=== PATIENT | female | born 1960 | race Caucasian/White ===

== ENCOUNTER 2020-01-17 12:03 | Inpatient (IN) ==
[2020-01-17] MEDS ORDERED: TYLENOL PO PRN (14:52)
[2020-01-17] MEDS ORDERED: ZOFRAN IV PRN (14:52)
[2020-01-17] MEDS ORDERED: VANCOMYCIN IV PER PHARMACY MISC SCH (16:45)
[2020-01-17] MEDS ORDERED: VANCOMYCIN 1 GM/NS 1 GM/250 ML IVPB IV ONE (17:00)
[2020-01-17 17:49] LABS: BASO# 0.03 X1000 (0.0-0.2); BASO% 0.4 % (0.0-0.8); EOS# 0.08 X1000 (0.0-0.7); EOS% 0.9 % (0.0-10.0); HEMATOCRIT 35.4 % (37.0-47.0); HEMOGLOBIN 11.3 g/dL (12.0-16.0); IMM GRAN# 0.04 X1000 (0.0-0.04); IMM GRAN% 0.5 % (0.0-0.5); LYMPH# 1.19 X1000 (1.2-3.4); LYMPH% 14.1 % (20.5-51.1); MCH 27.9 PG (27-31); MCHC 31.9 g/dL (33-37); MCV 87.4 FL (81-99); MONO% 11.8 % (1.7-9.3); MPV 8.9 FL (7.4-10.4); NEUT# 6.11 X1000 (1.4-6.5); NEUT% 72.3 % (42.2-75.2); PLT 521 X1000 (130-400); RBC 4.05 XMIL (4.2-5.4); RDW 13.7 % (11.5-14.5); WBC 8.45 X1000 (4.8-10.8)
[2020-01-17 18:19] LABS: ALBUMIN 3.5 g/dL (3.5-5.0); CALCIUM 9.5 mg/dL (8.8-10.2); CREATININE 1.2 mg/dL (0.5-0.9); POTASSIUM 4.3 mmol/L (3.5-5.1); TOTAL BILIRUBIN 0.2 mg/dL (0.20-1.00); TOTAL PROTEIN 8.6 g/dL (6.3-8.3)
--- NOTE | 2020-01-17 18:39 | HISTORY AND PHYSICAL ---
CHIEF COMPLAINT: "My left toe is infected." HISTORY OF PRESENT ILLNESS: This is a 59-year-old female with a history of diabetes mellitus, hypertension, tachycardia, gastroesophageal reflux disease and history of a thyroid goiter. She presents as a direct admit for a persistent and infected left great toe. She states that this started 3 or 4 weeks ago. She was evaluated at a walk-in clinic. At that time she was given antibiotics, although she does not remember what antibiotics. She states that she took the prescription as instructed. She was also told at that time to stay off of her foot for 2 or 3 days. She states that she stayed off of it for over a week and it just got worse. She reports clear to bloody drainage. She does have a history of neuropathy. She does have decreased feeling in her lower extremities, so she does not report much pain. She denies any fevers or chills. PAST MEDICAL HISTORY: 1. Diabetes mellitus. 2. Hypertension. 3. Fibromyalgia. 4. Rheumatoid arthritis. 5. Thyroid goiter. 6. Gastroesophageal reflux disease. 7. High cholesterol. PAST SURGICAL HISTORY: Cataracts, breast reduction, , and toenails removed from both great toes. SOCIAL HISTORY: She is . She denies any alcohol or illicit drug use. ALLERGIES: No known drug allergies. HOME MEDICATIONS: A list will be obtained by the nursing staff, and once verified we will review and restart as appropriate. REVIEW OF SYSTEMS: Discussed with the patient, with pertinent positives stated in the HPI. She denies any syncope or dizziness, any chest pain or palpitations, any shortness of breath, cough, fever or chills, any nausea, vomiting, diarrhea, constipation, black or bloody vomitus or stools, any hematuria or dysuria, frequency or urgency. PHYSICAL EXAMINATION: GENERAL: This is a 59-year-old female who is sitting up in the bed in no distress. VITAL SIGNS: Blood pressure is 147/83 with a heart rate of 94, respirations 18, temperature is 97.5 degrees oral. Room air saturation is 100%. HEENT: Head is normocephalic, atraumatic. Mucous membranes are moist. NECK: Supple, with trachea midline. No JVD. CARDIOVASCULAR: Regular rate and rhythm. S1 and S2 appreciated. No murmur. She has trace pretibial tibial edema. She denies any calf tenderness. Peripheral pulses are palpable x4 extremities. PULMONARY: Breath sounds are clear, with no increased work of breathing noted. Chest rises and falls symmetric with respiration. Chest wall is nontender to palpation. GASTROINTESTINAL: Abdomen is soft, nontender, nondistended, with bowel sounds in all 4 quadrants. GENITOURINARY: No CVA nor suprapubic tenderness. NEUROLOGIC: She is alert and oriented x3. SKIN: Right great toe is edematous. It is red. Skin is peeling. There is serosanguineous and purulent drainage noted coming from the plantar surface of the toe, with some serosanguineous drainage between the 1st and 2nd toe. ASSESSMENT AND PLAN: 1. Cellulitis, right great toe, questionable abscess. We will obtain an x-ray of her right foot. Culture was obtained. We will consult Wound Therapy. We will start antibiotics, vancomycin and Zosyn, and further antibiotics will be culture-driven. We will obtain blood cultures for completeness. 2. Diabetes mellitus type 2. The patient's last hemoglobin A1c in the office was greater than 12. She will be placed on a diabetic diet. Pattern blood glucose with sliding scale insulin. We will identify her home medications and continue as appropriate. 3. Peripheral neuropathy. Aware. 4. Rheumatoid arthritis. Aware. 5. Fibromyalgia. Aware. 6. Hypertension. We will identify her home medications and continue. 7. History of thyroid goiter. Check a TSH and free T4. Check a CBC and CMP stat and in the morning. further treatments pending hospital course. Dictated by JOHN White for Coy Roe MD cc: JOHN White MD [facility]
--- NOTE | 2020-01-17 19:15 | Diag Imaging Result Doc PS360 ---
EXAM: FOOT 2 VIEWS RIGHT INDICATION: ? abscess TECHNIQUE: 2 views COMPARISON: None. FINDINGS: There is soft tissue edema around the great toe and there is marked bony destruction associated with the distal phalanx of the great toe as well as the distal end of the proximal phalanx consistent with osteomyelitis. There is also near complete erosion of the distal phalanx of the fourth toe of unknown acuity. There are degenerative changes at the first and the fourth MTP joints and a few of the IP joints. There is chronic appearing irregularity associated with the fourth metatarsal likely representing an old healed fracture. There are calcaneal bone spurs and there are bone spurs at the dorsum of the midfoot. There is mild atherosclerotic calcification at the ankle. IMPRESSION: 1.Soft tissue edema around the great toe with marked bony destruction of the distal phalanx and the distal aspect of the proximal phalanx indicating osteomyelitis. 2.Near complete erosion of the distal phalanx of the fourth toe of unknown acuity. Electronically signed by Dinesh Faulkner 01/17/2020 7:12 PM
[2020-01-17] MEDS: HUMALOG (PARKWAY) SUBQ SCH ×2 (19:19→22:18)
[2020-01-17] MEDS: ZOSYN 3.375 GM in NS 50 ML IV SCH (19:20)
[2020-01-17] MEDS ORDERED: VANCOMYCIN 500 MG/NS 500 MG/100 ML IVPB IV ONE (21:00)
[2020-01-17] MEDS: NS 1,000 ML IV SCH (21:53)
[2020-01-17] MEDS: LEVEMIR INSULIN *HA SUBQ SCH (22:05)
[2020-01-17] MEDS: XALATAN 0.005% OPH SOLN LEFT EYE SCH (22:06)
[2020-01-17] MEDS: ULTRAM PO SCH (22:06)
--- NOTE | 2020-01-17 22:35 | HISTORY AND PHYSICAL ---
ADDENDUM: Patient seen and examined by myself. Full note dictated and discussed with nurse practitioner. Patient presented to the hospital with swelling of her right great toe. She states it only started 2 weeks ago and that she has been on antibiotics. She also notes that her blood sugar at home is typically 115 to 130. Again, as I have done multiple times in the office, I discussed with her that it certainly seems a little unusual as her A1c most recently was 12, which certainly would indicate a blood sugar greater than 112 to 130. In the office multiple times she has declined increasing her blood sugar treatment because she states she is having low blood sugars at home. Again, her A1c would not quite correlate with that. Her toe certainly looks as though it has been swollen for more than 2 weeks. We will admit her to the hospital, place her on antibiotics and will follow. Certainly concerned that she has osteomyelitis and may lose her toe. cc: Coy Roe MD
[2020-01-18] MEDS: ZOSYN 3.375 GM in NS 50 ML IV SCH ×4 (00:25→18:07)
[2020-01-18] MEDS: HUMALOG (PARKWAY) SUBQ SCH ×4 (06:19→21:38)
[2020-01-18 07:13] LABS: BASO# 0.02 X1000 (0.0-0.2); BASO% 0.3 % (0.0-0.8); EOS# 0.08 X1000 (0.0-0.7); EOS% 1.2 % (0.0-10.0); HEMATOCRIT 35.5 % (37.0-47.0); HEMOGLOBIN 11.5 g/dL (12.0-16.0); IMM GRAN# 0.03 X1000 (0.0-0.04); IMM GRAN% 0.4 % (0.0-0.5); LYMPH# 1.04 X1000 (1.2-3.4); LYMPH% 15.4 % (20.5-51.1); MCH 28.6 PG (27-31); MCHC 32.4 g/dL (33-37); MCV 88.3 FL (81-99); MONO# 0.88 X1000 (0.11-0.59); MPV 8.9 FL (7.4-10.4); NEUT% 69.7 % (42.2-75.2); PLT 496 X1000 (130-400); RBC 4.02 XMIL (4.2-5.4); RDW 13.8 % (11.5-14.5); WBC 6.75 X1000 (4.8-10.8)
[2020-01-18 07:29] LABS: ALBUMIN 3.2 g/dL (3.5-5.0); CALCIUM 9.6 mg/dL (8.8-10.2); TOTAL BILIRUBIN 0.2 mg/dL (0.20-1.00)
[2020-01-18] MEDS ORDERED: VANCOMYCIN IV PER PHARMACY MISC SCH (07:30)
[2020-01-18 07:37] LABS: HEMOGLOBIN A1C 11.9 % (4.8-6.0)
[2020-01-18] MEDS: TOPROL XL PO SCH (09:13)
[2020-01-18] MEDS: COZAAR PO SCH (09:13)
[2020-01-18] MEDS: JANUVIA PO SCH (09:14)
[2020-01-18] MEDS: NS 1,000 ML IV SCH (13:58)
[2020-01-18] MEDS: XALATAN 0.005% OPH SOLN LEFT EYE SCH (21:36)
[2020-01-18] MEDS: LEVEMIR INSULIN *HA SUBQ SCH (21:37)
[2020-01-18] MEDS: ULTRAM PO SCH (21:37)
[2020-01-19] MEDS: ZOSYN 3.375 GM in NS 50 ML IV SCH ×4 (00:30→18:28)
--- NOTE | 2020-01-19 00:44 | PROGRESS NOTE ---
DATE: 01/18/2020 SUBJECTIVE: Patient has no complaints. States that her toe still is swollen, still hurts a little. After much discussion, she does admit that she has not been calibrating her blood sugar machines probably ever. PHYSICAL EXAMINATION: Vital Signs: Temperature 98 degrees, pulse 96, respiratory rate 18, BP 125/83. General: Patient is awake, pleasant. She is in no current distress. HEENT: Normocephalic. Neck: Supple. Cardiovascular: Regular rate. Chest: Clear, nonlabored. Abdomen: Soft, nondistended. Extremities: Moves all extremities. Right lower extremity great toe is markedly swollen. ASSESSMENT: 1. Cellulitis right great toe. 2. Diabetes type 2 with poor home control and A1c around 12 in a patient who states on admission that her blood sugars are 115 to 130. She has been very recalcitrant at home to adjust her blood sugar medications because she states her blood sugars are normal at home. After much discussion, it appears as though she does not calibrate her machine. Therefore, as we have been attempting to discuss with her from the office as well as the hospital blood sugars actually are probably higher than she realizes. We will continue antibiotics. Continue to follow. 3. Osteomyelitis. Unfortunately, expect that she will ultimately end up losing her great toe. cc: Coy Roe MD
[2020-01-19] MEDS: NS 1,000 ML IV SCH ×2 (03:53→17:04)
[2020-01-19] MEDS ORDERED: VANCOMYCIN 1,200 MG in NS 250 ML IV SCH (04:00)
[2020-01-19] MEDS: HUMALOG (PARKWAY) SUBQ SCH ×4 (06:08→21:32)
[2020-01-19] MEDS ORDERED: TYLENOL PO PRN (06:45)
[2020-01-19] MEDS: COZAAR PO SCH (09:17)
[2020-01-19] MEDS: JANUVIA PO SCH (09:17)
[2020-01-19] MEDS: TOPROL XL PO SCH (09:17)
--- NOTE | 2020-01-19 16:50 | GENERAL SURGERY CONSULTATION ---
DATE: 01/19/2020 This is a pleasant 59-year-old female who has had a callus on her big toe for of the right foot. The callus broke open and she started swelling up in her right great toe. She saw a bookkeeping clerk who recommended she be hospitalized. This was 3 days ago. She was hospitalized. She is found to have a large swollen right great toe with a wound on the posteromedial aspect. X-ray shows destruction of the distal phalanx and portion of the proximal phalanx distally. Her other medical problems include diabetes, hypertension, rheumatoid arthritis, hypercholesterolemia, goiter, gastroesophageal reflux disease and fibromyalgia. PAST SURGICAL HISTORY: Previous surgery includes breast reduction, , toenails removed and cataract removal. MEDICATIONS AT HOME: Include Januvia 100 mg daily, Levemir insulin 80 mg subcu at bedtime, Cozaar 25 mg daily, metoprolol 25 mg daily, Bactroban ointment, tramadol for pain as needed, latanoprost drops at bedtime. ALLERGIES: She has no known drug allergies. SOCIAL HISTORY: She is . She denies any alcohol, illicit drug use or smoking. She has an attentive son present. She does report the loss of a child post amputation to blood clots in his legs. FAMILY HISTORY: Noncontributory. REVIEW OF SYSTEMS: Negative for chest pain, shortness of breath, abdominal symptoms, dysuria, and all other 10 subsystems are negative. PHYSICAL EXAMINATION: Vital Signs: She is afebrile, heart rate 88, blood pressure 170/83, respiratory rate 18. She is normocephalic. No cervical adenopathy. Bilateral breath sounds are present. Heart: Regular rate and rhythm. Slight murmur is heard. Abdomen: Soft and nontender. Femoral pulses are present. She has 3+ dorsalis pedis pulses bilaterally. Her left foot appears normal. Right foot has an enlarged, erythematous, swollen right great toe with a wound on the medial posterior aspect. ASSESSMENT: Osteomyelitis right great toe with surrounding cellulitis. She is on intravenous antibiotic therapy and has been since her admission 2 days ago. Her best option is to proceed with amputation of the right great toe. I have discussed that with her, the benefits and risks. She understands. She wants to proceed. We will plan to proceed on 01/20/2020. cc: MD Coy Taylor MD
--- NOTE | 2020-01-19 17:18 | EKG Report ---
Test Performed on : 01/19/2020 5:11:35 PM Test Reason : CP Blood Pressure : / mmHG Vent. Rate : 095 BPM Atrial Rate : 095 BPM P-R Int : 136 ms QRS Dur : 082 ms QT Int : 362 ms P-R-T Axes : 028 007 -01 degrees QTc Int : 454 ms Normal sinus rhythm. Minimal voltage criteria for LVH, may be normal variant Nonspecific ST and T wave abnormality Abnormal ECG No previous ECGs available Unconfirmed Result
[2020-01-19] MEDS: XALATAN 0.005% OPH SOLN LEFT EYE SCH (21:35)
[2020-01-19] MEDS: ULTRAM PO SCH (21:37)
[2020-01-19] MEDS: LEVEMIR INSULIN *HA SUBQ SCH (21:38)
[2020-01-20] MEDS: ZOSYN 3.375 GM in NS 50 ML IV SCH ×2 (00:30→06:23)
--- NOTE | 2020-01-20 01:06 | PROGRESS NOTE ---
DATE: 01/19/2020 SUBJECTIVE: Patient with no complaints. PHYSICAL EXAMINATION: Vital Signs: Reviewed. Temperature 97.9 degrees, pulse 82, respiratory rate 18, BP 152/78. General: Patient is pleasant, currently in no distress. HEENT: Normocephalic. Neck: Supple. Cardiovascular: Regular rate. Chest: Clear and nonlabored. Abdomen: Soft, nondistended. Extremities: Moves all extremities. Neurologic: No changes. ASSESSMENT: 1. Right great toe cellulitis. Continues to improve, has much less erythema, much less swelling, now just simply the great toe is swollen and erythematous although markedly swollen and minimally erythematous. This is an improvement as she has no more swelling in his foot. 2. Diabetes with poor home control. This has been documented multiple times in the past that patient refused to elevate her blood sugar medications as she stated that her blood sugars at home were normal although her A1cs have not correlated with this. 3. Osteomyelitis. Discussed with patient and her it is highly unlikely that she will be able to save her toe. PLAN: Patient's blood sugars are improved between 64 and 200s. We are going to continue Zosyn and vancomycin. She appears to be growing gram-positive cocci. We will adjust once cultures are finalized. cc: Coy Roe MD
[2020-01-20] MEDS: NS 1,000 ML IV SCH ×3 (02:30→13:05)
[2020-01-20] MEDS: HUMALOG (PARKWAY) SUBQ SCH (06:22)
--- NOTE | 2020-01-20 09:45 | GENERAL SURGERY PROGRESS NOTE ---
DATE: 01/20/2020 Ms. Maya has been transferred over to the main campus. She is prepared for partial amputation of her right great toe today. We answered her questions. cc: MD Coy Taylor MD
[2020-01-20] MEDS ORDERED: APRESOLINE IV PRN (10:10)
[2020-01-20] MEDS ORDERED: TYLENOL PO PRN (10:35)
[2020-01-20] MEDS: TOPROL XL PO SCH (10:53)
[2020-01-20] MEDS: JANUVIA PO SCH (10:53)
[2020-01-20] MEDS ORDERED: VANCOMYCIN 1,200 MG in NS 250 ML IV SCH (11:00)
[2020-01-20] MEDS ORDERED: DIPRIVAN 1% ONE (11:04)
[2020-01-20] MEDS ORDERED: ROBINUL ONE (11:07)
[2020-01-20] MEDS ORDERED: XYLOCAINE-MPF 2% ONE ×2 (11:07→11:56)
[2020-01-20] MEDS ORDERED: LABETALOL (DOSE) ONE (11:26)
[2020-01-20] MEDS ORDERED: TORADOL ONE (11:29)
[2020-01-20] MEDS ORDERED: ZOFRAN ONE (11:29)
--- NOTE | 2020-01-20 11:42 | PROGRESS NOTE ---
DATE: 01/20/2020 SUBJECTIVE: This patient states that she is feeling better, she will go for a procedure today. It looks like she is being prepared for a partial amputation of her right great toe, Surgery Department on board. She is NPO except for medications. OBJECTIVE: Vital Signs: Temperature 98 degrees, pulse 85, respiratory rate 16, blood pressure 172/79, oxygen saturation 100% on room air. HEENT: Head normocephalic, no trauma, PERRLA. Neck: Supple. No JVD. No masses. Central trachea. Chest: Clear to auscultation. No wheezing. No rales. Cardiovascular: Regular rate and rhythm. Abdomen: Soft, nontender, nondistended. No hepatosplenomegaly. Extremities: Her right great toe is covered but it is edematous. Some serosanguineous and some yellowish drainage noted as well in the plantar surface. LABORATORY: Glucose 130. ASSESSMENT AND PLAN: 1. Right great toe osteomyelitis. She is being prepared for a partial amputation today by Dr. Marquez, we will follow his recommendations. We will continue to monitor this patient closely. 2. Type 2 diabetes. Her hemoglobin A1c is 11.9, so it looks like she has not been taking care of her diabetes at home. It is not well controlled, we will discuss these after surgery. 3. Peripheral neuropathy. Aware, likely due to uncontrolled diabetes. 4. Rheumatoid arthritis. Aware. 5. History of fibromyalgia. We will monitor. 6. Hypertension. She has been placed back on her home medications and also and I put this patient on as needed medications. 7. History of goiter. I will ask for a TSH tomorrow, but probably this is not going to give me a real number because of the current infection and surgery, so I will keep an eye on this. She seems to be stable. 8. Kidney disease on presentation. I do not have any previous records from this patient. The creatinine decreased from 1.2 to 1, BUN within normal limits. I will recheck her lab work in the morning. cc: MD Coy Scott MD
[2020-01-20] MEDS ORDERED: DECADRON ONE (12:09)
[2020-01-20] MEDS ORDERED: NORCO-10 ONE (12:26)
[2020-01-20] MEDS: HUMALOG SUBQ SCH ×3 (12:31→22:23)
[2020-01-20] MEDS ORDERED: NORCO-10 PO PRN (12:52)
[2020-01-20] MEDS ORDERED: DILAUDID IV PRN (12:55)
--- NOTE | 2020-01-20 13:59 | PROGRESS NOTE ---
DATE: 01/20/2020 SUBJECTIVE: Patient has no new complaints. PHYSICAL EXAMINATION: Vital Signs: Reviewed. Temp 97.9 degrees, pulse 82, respiratory rate 18, BP 151/78. General: Patient is awake, pleasant. HEENT: Normocephalic. Neck: Supple. Cardiovascular: Regular rate. Chest: Clear. Abdomen: Soft. Extremities: Moves all extremities. Skin: Right great toe is still erythematous and swollen. She has minimal erythema of her foot. ASSESSMENT: 1. Osteomyelitis right foot. 2. Diabetes with poor home control. 3. Enterococcus in her wound. PLAN: We will continue patient in the hospital, transfer her to [facility]. Dr. Marquez has seen in consultation and plans on taking her to surgery this morning. cc: Coy Roe MD
--- NOTE | 2020-01-20 15:00 | OPERATIVE NOTE ---
PROCEDURE DATE: 01/20/2020 PROCEDURE PERFORMED: Right great toe amputation. SURGEON: Adrian Marquez MD. CONCESSIONIST: GONZÁLEZ Crain. PREOPERATIVE DIAGNOSIS: Right great toe neuropathic ulcer with osteomyelitis of the phalanges. POSTOPERATIVE DIAGNOSIS: Right great toe neuropathic ulcer with osteomyelitis of the phalanges. DESCRIPTION OF PROCEDURE: Satisfactory general anesthesia was achieved. The right foot was prepped and draped in a sterile fashion. We marked the skin in a [place] fashion in the mid aspect of the great toe. We then incised the skin and carried our incision through the subcutaneous tissue to the interphalangeal joint, amputated the toe through this joint. However, the distal first phalanx was also diseased and infected, so we had to use a rongeur to bite back the proximal phalanx to its proximal portion. We incised extra skin posteriorly because of the infection. We then copiously irrigated the wound. There was good digital artery flow which we cauterized. After copious irrigation, we then placed 3-0 nylon simple stitches. We had a 4-0 nylon simple stitch on each end of the wound to help approximate skin edges. Some of the skin on the medial aspect of the closure was left slightly open in order to allow drainage. Xeroform followed by sterile 4 x 4s followed by sterile Kerlix was applied. She tolerated it well, was sent to the recovery room in satisfactory condition. cc: MD Coy Taylor MD
[2020-01-20] MEDS ORDERED: INSULIN PEN NEEDLES ONE (15:11)
[2020-01-20] MEDS: XALATAN 0.005% OPH SOLN LEFT EYE SCH (22:22)
[2020-01-20] MEDS: LEVEMIR SUBQ SCH (22:23)
[2020-01-20] MEDS: ULTRAM PO SCH (22:38)
[2020-01-21] MEDS: HUMALOG SUBQ SCH ×4 (06:16→21:43)
[2020-01-21 07:47] LABS: BASO# 0.02 X1000 (0.0-0.2); BASO% 0.2 % (0.0-0.8); EOS# 0.03 X1000 (0.0-0.7); EOS% 0.4 % (0.0-10.0); HEMATOCRIT 30.9 % (37.0-47.0); HEMOGLOBIN 9.5 g/dL (12.0-16.0); IMM GRAN# 0.03 X1000 (0.0-0.04); IMM GRAN% 0.4 % (0.0-0.5); LYMPH# 1.84 X1000 (1.2-3.4); LYMPH% 22.9 % (20.5-51.1); MCH 27.5 PG (27-31); MCHC 30.7 g/dL (33-37); MCV 89.3 FL (81-99); MONO# 0.97 X1000 (0.11-0.59); MONO% 12.1 % (1.7-9.3); NEUT# 5.13 X1000 (1.4-6.5); PLT 423 X1000 (130-400); RBC 3.46 XMIL (4.2-5.4); RDW 14.1 % (11.5-14.5); WBC 8.02 X1000 (4.8-10.8)
[2020-01-21 08:21] LABS: CALCIUM 8.3 mg/dL (8.8-10.2); CREATININE 2.2 mg/dL (0.5-0.9); MAGNESIUM 1.8 mg/dL (1.5-2.7); POTASSIUM 4.1 mmol/L (3.5-5.1)
--- NOTE | 2020-01-21 08:48 | GENERAL SURGERY PROGRESS NOTE ---
DATE: 01/21/2020 Ms. Maya is doing well. She says her toe is not hurting her. Her wound is inspected and re- dressed in a sterile fashion. Her wound culture is growing group D strep. She is on vancomycin, to which it is sensitive. Her BUN and creatinine have bumped up, so her vancomycin dose may have to be adjusted. cc: MD Coy Taylor MD
[2020-01-21] MEDS: NS 1,000 ML IV SCH (08:59)
[2020-01-21] MEDS ORDERED: COZAAR PO SCH (09:00)
[2020-01-21] MEDS: TOPROL XL PO SCH (09:00)
[2020-01-21] MEDS: JANUVIA PO SCH (09:01)
[2020-01-21] MEDS ORDERED: MILK OF MAGNESIA PO ONE (10:23)
[2020-01-21] MEDS: ZYVOX 600 MG/D5W 600 MG/300 ML IVPB IV SCH ×2 (10:37→21:46)
--- NOTE | 2020-01-21 13:50 | PROGRESS NOTE ---
DATE: 01/21/2020 SUBJECTIVE: The patient is resting comfortably in bed. She is not complaining of pain. No active bleeding. Her creatinine increased to 2.2. As per the patient, she has been told that she has some kidney dysfunction, and actually she was called by her cash applications associate because her creatinine was 1.6 at some point. I had a large conversation with her and also the at the bedside about diabetes and kidney function, and I recommended to follow up with Nephrology Department as an outpatient. I will stop or hold nephrotoxic medications, and I will continue with IV fluids. OBJECTIVE: Vital Signs: Temperature 97.9 degrees, pulse 82, respiratory rate 16, blood pressure 135/62, oxygen saturation 95% on room air. HEENT: Head normocephalic. No trauma. PERRLA. Neck: Supple. No JVD. No masses. Central trachea. Chest: Clear to auscultation. No wheezing. No rales. Abdomen: Soft, nontender, nondistended. No hepatosplenomegaly. Extremities: Her right foot is covered with a dressing. No signs of bleeding. Neurological: The patient is awake, alert, and oriented. No focal deficits. LABORATORY DATA: WBC 8, hemoglobin 9.5, hematocrit 30.9, platelets 423,000. Sodium 138, potassium 4.1, chloride 101, bicarbonate 24, BUN 22, creatinine 2.2, glucose 149, calcium 8.3. Magnesium 1.8. ASSESSMENT AND PLAN: 1. Right great toe osteomyelitis, status post amputation by Dr. Marquez. Will continue following his recommendations. Will monitor this patient closely. 2. Type 2 diabetes with a hemoglobin A1c of 11.9. It looks like this patient has not been taking care of her diabetes at home. It is not well controlled. This has been discussed with her already today. 3. Peripheral neuropathy. Aware. Likely due to uncontrolled diabetes. 4. Rheumatoid arthritis. Aware. 5. History of fibromyalgia. Will monitor. 6. Hypertension. I will continue with home medications, except losartan, due to her likely acute on chronic kidney disease. 7. History of goiter. Aware. TSH is normal. 8. Likely acute on chronic kidney disease. I will continue with intravenous fluids. I will avoid nephrotoxic medications for now. cc: MD Coy Scott MD
[2020-01-21] MEDS: LEVEMIR SUBQ SCH (21:46)
[2020-01-21] MEDS: XALATAN 0.005% OPH SOLN LEFT EYE SCH (21:46)
[2020-01-21] MEDS: ULTRAM PO SCH (22:10)
[2020-01-22] MEDS: ZOFRAN IV PRN ×3 (01:09→22:02)
[2020-01-22] MEDS: HUMALOG SUBQ SCH ×4 (06:20→22:07)
[2020-01-22 07:22] LABS: CALCIUM 8.3 mg/dL (8.8-10.2); POTASSIUM 4.1 mmol/L (3.5-5.1)
[2020-01-22] MEDS: JANUVIA PO SCH ×2 (07:55→08:07)
[2020-01-22] MEDS: TOPROL XL PO SCH ×2 (07:56→08:06)
[2020-01-22] MEDS: ZYVOX 600 MG/D5W 600 MG/300 ML IVPB IV SCH ×3 (07:56→22:02)
[2020-01-22] MEDS ORDERED: CITRATE OF MAGNESIA PO ONE (07:59)
--- NOTE | 2020-01-22 08:31 | GENERAL SURGERY PROGRESS NOTE ---
DATE: 01/22/2020 Ms. Maya's amputation site looks good. It is cleaned and re-dressed today. Her wound culture is growing Enterococcus. She is on Zyvox for that. Her creatinine has gone up to 3. Four days ago, it was 1.0. We will have to continue to watch her renal function and adjust her antibiotics appropriately. cc: MD Coy Taylor MD
--- NOTE | 2020-01-22 11:06 | Diag Imaging Result Doc PS360 ---
EXAM: US RENAL 2 (RETROPER) COMPLETE INDICATION: [id number]/arf TECHNIQUE: COMPARISON: None. FINDINGS: There is questionable mild increased renal echotexture, which is a nonspecific indicator of medical renal disease. No discrete renal mass or hydronephrosis is identified. The right kidney measures 8.8 cm and the left kidney measures 14 cm in the greatest longitudinal axes. Right renal cortex measures 0.9 cm and the left renal cortex measures 1.6 cm in thickness. The urinary bladder is unremarkable. IMPRESSION: 1.Questionable slight increase in renal echotexture, which is a nonspecific indicator of medical renal disease. 2.Diminutive right kidney as compared to the left. Electronically signed by Dinesh Faulkner 01/22/2020 11:04 AM
[2020-01-22 12:12] LABS: UR CREAT RANDOM 22.6 mg/dL (11-20); UR PROT RANDOM 8.2 mg/dL
[2020-01-22 12:21] LABS: URINE SOURCE CLEAN CATCH
[2020-01-22 12:27] LABS: BILIRUBIN URINE NEGATIVE (NEGATIVE); BLOOD URINE NEGATIVE (NEGATIVE); COLOR STRAW; GLUCOSE URINE NEGATIVE (NEGATIVE); KETONE URINE NEGATIVE (NEGATIVE); LEUKOCYTES URINE NEGATIVE (NEGATIVE); NITRITE URINE NEGATIVE (NEGATIVE); PH URINE 6.5; PROTEIN URINE NEGATIVE (NEGATIVE); SP GRAVITY URINE 1.007; TURBIDITY URINE CLEAR (CLEAR); UR EPITHELIAL CELLS <10 /HPF (<10); URINE BACTERIA NEGATIVE /HPF; URINE RBC <10 /HPF (<10); URINE WBC <10 /HPF (<10); UROBILINOGEN URINE NORMAL (NORMAL)
[2020-01-22] MEDS ORDERED: DULCOLAX PR ONE (13:18)
--- NOTE | 2020-01-22 14:42 | PROGRESS NOTE ---
DATE: 01/22/2020 SUBJECTIVE: The patient is resting comfortably in bed. She seems to be constipated. Creatinine is getting worse as well as BUN. I asked for an echocardiogram and some urine studies. OBJECTIVE: Vital Signs: Temperature 97.6 degrees, pulse 75, respiratory rate 16, blood pressure 172/89, oxygen saturation 99 on room air. HEENT: Head normocephalic. No trauma. PERRLA. Neck: Supple. No JVD. No masses. Central trachea. Chest: Clear to auscultation. No wheezing. No rales. Abdomen: Soft, nontender, nondistended. No hepatosplenomegaly. Extremities: Her right foot is covered with a dressing. No signs of bleeding. Neurological: Patient is awake, alert. She is oriented x3. No focal deficits. LABORATORY: Sodium 138, potassium 4.1, chloride 103, bicarbonate 23, BUN 29, creatinine 3, glucose 85, calcium 8.3. ASSESSMENT AND PLAN: 1. Right great toe osteomyelitis, status post amputation by Dr. Marquez, continue with the same management. 2. Type 2 diabetes with a hemoglobin A1c of 11.9, it looks like she has not been taking care of her blood sugar at home; it is not well controlled. This has been discussed with her yesterday and today. 3. Peripheral neuropathy. Aware. 4. Rheumatoid arthritis. Aware. 5. History of fibromyalgia. We will monitor. 6. Acute on chronic kidney disease, we will continue with IV fluids. I have requested a kidney ultrasound and some lab work. 7. History of goiter, aware. TSH is normal. cc: MD Coy Scott MD
[2020-01-22] MEDS: NS 1,000 ML IV SCH ×3 (15:04→22:01)
[2020-01-22] MEDS: COZAAR PO SCH (17:21)
[2020-01-22] MEDS: ULTRAM PO SCH (22:02)
[2020-01-22] MEDS: LEVEMIR SUBQ SCH (22:07)
[2020-01-22] MEDS: XALATAN 0.005% OPH SOLN LEFT EYE SCH (22:07)
[2020-01-23 07:32] LABS: CALCIUM 8.7 mg/dL (8.8-10.2); CREATININE 3.2 mg/dL (0.5-0.9); MAGNESIUM 2.5 mg/dL (1.5-2.7); POTASSIUM 4.6 mmol/L (3.5-5.1)
[2020-01-23] MEDS: HUMALOG SUBQ SCH ×2 (08:21→11:46)
[2020-01-23] MEDS: COZAAR PO SCH (09:03)
[2020-01-23] MEDS: TOPROL XL PO SCH (09:03)
[2020-01-23] MEDS: JANUVIA PO SCH (09:03)
[2020-01-23] MEDS: ZYVOX 600 MG/D5W 600 MG/300 ML IVPB IV SCH (09:12)
[2020-01-23 12:16] VITALS: BP 159/75
--- NOTE | 2020-01-23 15:19 | GENERAL SURGERY PROGRESS NOTE ---
DATE: 01/23/2020 PROGRESS NOTE: Ms. Maya's amputation site looks good. It is healing satisfactorily. From my perspective she can go home. She knows to weight bear on her heel only. She will return to see me in the office in a week. I think two weeks of antibiotic therapy should be adequate for treatment of her osteo since we have resected the diseased bone. cc: MD Coy Taylor MD
--- NOTE | 2020-01-23 15:54 | NEPHROLOGY CONSULTATION ---
DATE: 01/23/2020 REASON FOR CONSULTATION: Acute kidney injury. HISTORY OF PRESENT ILLNESS: Ms. Maya is a 59-year-old white female with a history of rheumatoid arthritis, diabetes, hypertension, GERD, etc. She has destructive ulcer on the right great toe which prompted her to be admitted to the hospital. She was treated with antibiotics but ultimately underwent surgical amputation by Dr. Marquez on the . Her baseline creatinine was 1.2 on presentation, 1.0 on the . Her next collected labs were on the , the day after surgery, at which time creatinine was 2.2 and has risen to 3.2. Good urine output, in fact, polyuric. No chest pain, palpitations, shortness of breath, nausea, vomiting, etc. She has not received any nephrotoxic medications. No IV contrast. She did have transient hypotension in the operating room. PAST MEDICAL HISTORY: As above. CURRENT MEDICATIONS: Include insulin, latanoprost, tramadol, acetaminophen, hydralazine, hydrocodone, insulin, metoprolol, ondansetron, sitagliptin, linezolid, magnesium citrate. ALLERGIES: None. SOCIAL HISTORY, FAMILY HISTORY REVIEW OF SYSTEMS: Otherwise noncontributory. PHYSICAL EXAMINATION: Vital Signs: Blood pressure 159/75, heart rate 81, respiration 18, afebrile. General: Generally, middle-aged white female. No acute distress. Skin: Warm and dry. HEENT: Conjunctivae are pink. Pupils are equal. Oropharynx clear. Neck: Neck veins are 6 cm with hepatojugular reflux. Heart: Regular. No gallops or murmurs. Lungs: Equal. No crackles or wheezes. Abdomen: Soft nontender, obese. Bowel sounds present. Extremities: Minimal edema. No clubbing or cyanosis. IMPRESSION AND PLAN: Acute kidney injury, ischemic acute tubular necrosis. She has no indications for dialysis and is only modestly volume expanded. I will stop her IV fluids. If she is otherwise ready for discharge then she will need labs collected as an outpatient on . Repeat on Wednesday. Followup in the office. cc: MD Coy Mccollum MD
--- NOTE | 2020-01-23 19:44 | VASCULAR LAB ---
PROCEDURE NAME: Arterial Bilateral Legs - 01/17/2020 REFERRING PHYSICIAN: Maxim. 59-year-old female. [employer] SP[employer]ER: Alexandria NAVAS. INDICATIONS: Ulcer in the right foot. The patient is a diabetic and has high blood pressure. FINDINGS: The right systolic brachial blood pressure is 185 mmHg, left 186 mmHg. Right high thigh is 236 mmHg, left high thigh 221 mmHg. Right low thigh 242 mmHg, left low thigh is 243 mmHg. Right calf 236 mmHg, left calf 194 mmHg. Right ankle is 218 mmHg, left ankle 221 mmHg. There is pulsatile flow in both feet and both great toes. At rest, the right ankle-brachial index is 1.17, and the left ankle-brachial index is 1.19. INTERPRETATION: Despite the ulcer involving the right great toe, there appears to be normal arterial flow to both lower extremities at rest. cc: MD Serene Tolliver CRNP
--- NOTE | 2020-01-23 22:23 | DISCHARGE SUMMARY ---
ADMISSION DATE: 01/17/2020 DISCHARGE DATE: 01/23/2020 DISCHARGE DIAGNOSES: 1. Right great toe osteomyelitis status post amputation. 2. 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 3. Peripheral neuropathy. 4. Uncontrolled type 2 diabetes. 5. History of fibromyalgia. 6. Possible acute on chronic kidney disease. 7. History of goiter, TSH is normal. PROCEDURES PERFORMED: 1. Foot x-ray dated 01/17/2020. Impression; soft tissue edema around the great toe with marked bony destruction of the distal phalanx and the distal aspect of the proximal phalanx indicating osteomyelitis. Near-complete erosion of the distal phalanx of the fourth toe of unknown acuity. 2. Renal ultrasound dated 01/22/2020. Impression; questionable slight decrease in renal echotexture, which is a nonspecific indicator of medical renal disease, diminutive right kidney as compared to the left. HOSPITAL COURSE: A 59-year-old female with past medical history of diabetes, hypertension, tachycardia, GERD and goiter with possible chronic kidney disease who presented as a direct admit for a persistent and infected right great toe that has been going on for at least 3 or 4 weeks. She has been admitted on 01/17/2020. She was evaluated at the walk-in clinic. She was given antibiotics, but she does not remember the name of them. She took the medications as instructed. She was also told to stay off her foot for 2 to 3 days, but as per the patient this got worse. She has been having bloody drainage. She does have a history of neuropathy, decreased feeling sensation in her lower extremities, not too much pain. She denies fever and chills. Surgery department evaluated this patient and due to her osteomyelitis of the right great toe with surrounding cellulitis, the best option to proceed was amputation of the right great toe. This was discussed with the patient and she decided to proceed with the treatment. She was placed initially on vancomycin, but given an increase of her BUN and creatinine it has been switched to Zyvox. On 01/20/2020, a right great toe amputation was done due to osteomyelitis. The patient tolerated well the procedure. We have a positive culture that showed enterococcal faecalis and we continued with the same management. No fever, no chills. The kidney function increased, so Nephrology department evaluated this patient. We did an ultrasound that showed a questionable slight increase in renal echotexture, which is a nonspecific indicator of medical renal disease. Also, there is a diminutive right kidney compared to the left. After this evaluation we have decided to discharge this patient home. She has been doing fine. Her urine output is picking up. She will follow up this week with Dr. Rice as an outpatient, and she will follow up with Dr. Marquez in 1 week. This has been explained to the patient. On the other hand, she has been on losartan, which I have stopped for now. This has also been explained to the patient and the at the bedside. I am not stopping the medication completely. I just want to hold it until the kidney function recovers a little bit better. The patient seems to be in stable medical condition tolerating p.o. and ambulating. PHYSICAL EXAMINATION: Vital Signs: Temperature 97.5 degrees, pulse 81, respiratory rate 18, blood pressure 159/75, oxygen saturation 95% on room air. HEENT: Head normocephalic. No trauma. PERRLA. Neck: Supple. No JVD. No masses. Central trachea. Chest: Clear to auscultation. No wheezing. No rales. Abdomen: Soft, nontender, nondistended. No hepatosplenomegaly. Extremities: Right foot is covered with a dressing. No signs of bleeding. Neurological: The patient is awake. She is alert. She is oriented x3. No focal deficits. LABORATORY: Sodium 142, potassium 4.6, chloride 107, bicarbonate 25, BUN 26, creatinine 3.2, glucose 139, calcium 8.7, magnesium 2.5. DISCHARGE MEDICATIONS: Port Tobacco 10 one tablet p.o. q.4 hours as needed for pain, insulin detemir 80 units subcutaneous at bedtime, latanoprost ophthalmic 1 drop at bedtime, metoprolol succinate 25 mg p.o. daily. Penicillin VK 500 mg p.o. every 8 hours for 5 more days, Januvia 100 mg p.o. daily and tramadol 1 tablet p.o. at bedtime. TIME SPENT: Discharge time for this patient was 35 minutes. cc: MD Coy Scott MD
== END 2020-01-23 15:32 | disposition home or self-care (01) | DRG 617 ==
LOC: P.DIRADM 12:03 → SUATTDRO 12:03 → P.MEDSURG 12:05 → 4N 01-20 08:23
PROVIDERS: ADMIT Family Medicine; ATTEND Internal Medicine